=== PATIENT | female | born 1990 | race African-American/Black ===

== ENCOUNTER 2018-06-29 09:37 | Emergency (ER) | payer BC ==
[2018-06-29 11:27] VITALS: BP 158/99
[2018-06-29] MEDS ORDERED: Ipratropium 0.5MG/2.5ML NEB* 0.5 MG/2.5 ML NEB.SOLN INH ONE (11:39)
[2018-06-29] MEDS ORDERED: Albuterol 2.5 MG/3 ML NEB.SOL* (0.083%) INH ONE (11:39)
--- NOTE | 2018-06-29 11:45 | UC ---
Respiratory Complaint HPI - HPI Summary HPI Summary: The patient is a 27-year-old female with a history of asthma who is currently out of her asthma medicines. She has had cough chest tightness wheezing 3 days. Now she has substernal chest pain and both the right and left side and some right infrascapular back pain. She denies any shortness of breath or fever. - History of Current Complaint Chief Complaint: UCRespiratory Stated Complaint: CHEST PAIN Time Seen by Provider: 06/29/18 11:34 Hx Obtained From: Patient Hx Last Menstrual Period: unknown Onset/Duration: Gradual Onset, Lasting Days Timing: Constant Severity Initially: Mild Severity Currently: Moderate Pain Intensity: 5 Pain Scale Used: 0-10 Numeric Character: Cough: Nonproductive Aggravating Factors: Exertion, Deep Breaths Alleviating Factors: Nothing Associated Signs And Symptoms: Positive: Pleuritic Chest Pain, Wheezing - Allergies/Home Medications Allergies/Adverse Reactions: Allergies Allergy/AdvReac Type Severity Reaction Status Date / Time No Known Allergies Allergy Verified 06/29/18 11:21 PMH/Surg Hx/FS Hx/Imm Hx Previously Healthy: Yes Respiratory History: Asthma, Bronchitis - Surgical History Surgical History: Yes Surgery Procedure, Year, and Place: BILATERAL EYE SURGERY - Family History Known Family History: Positive: Hypertension - mother Negative: Cardiac Disease, Diabetes - Social History Alcohol Use: None Substance Use Type: None Smoking Status (MU): Never Smoked Tobacco Have You Smoked in the Last Year: No - Immunization History Most Recent Influenza Vaccination: 2016 Review of Systems All Other Systems Reviewed And Are Negative: Yes Constitutional: Positive: Fatigue Skin: Positive: Negative Eyes: Positive: Negative ENT: Positive: Negative Respiratory: Positive: Cough Cardiovascular: Positive: Chest Pain Gastrointestinal: Positive: Negative Genitourinary: Positive: Negative Motor: Positive: Negative Neurovascular: Positive: Negative Musculoskeletal: Positive: Negative Neurological: Positive: Negative Psychological: Positive: Negative Physical Exam Triage Information Reviewed: Yes Appearance: Well-Appearing, No Pain Distress, Well-Nourished Vital Signs: Initial Vital Signs Temp 97.3 F 06/29/18 11:21 Pulse 63 06/29/18 11:21 Resp 16 06/29/18 11:21 BP 158/99 06/29/18 11:21 Pulse Ox 100 06/29/18 11:21 Eyes: Positive: Conjunctiva Clear ENT: Positive: Hearing grossly normal, Nasal congestion, TMs normal. Negative: Nasal drainage, Tonsillar swelling, Tonsillar exudate, Trismus, Muffled voice, Hoarse voice, Dental tenderness, Sinus tenderness, Uvula midline Neck: Positive: Supple, Nontender, No Lymphadenopathy Respiratory: Positive: No respiratory distress, No accessory muscle use, Wheezing Cardiovascular: Positive: RRR, No Murmur Abdomen Description: Positive: Nontender Musculoskeletal: Positive: ROM Intact, No Edema Neurological: Positive: Alert Psychological Exam: Normal Skin Exam: Normal UC Diagnostic Evaluation - Laboratory O2 Sat by Pulse Oximetry: 100 - normal/not hypoxic Re-Evaluation - Re-Evaluation First Eval Re-Evaluation Time: 12:33 Change: Improved - much better air movement/better subjectively/lungs clear Respiratory Course/Dx - Differential Dx/Diagnosis Provider Diagnoses: acute bronchitis. bronchospasm Discharge - Sign-Out/Discharge Documenting (check all that apply): Patient Departure All imaging exams completed and their final reports reviewed: No Studies - Discharge Plan Condition: Stable Disposition: HOME Prescriptions: predniSONE [Deltasone 20 MG TAB] 40 mg PO DAILY #10 tab Patient Education Materials: Acute Bronchitis (ED), Bronchospasm (ED) Referrals: Hannah De La Paz MD [Primary Care Provider] - 1 Week (your BP was high here and should be rechecked) Additional Instructions: use inhaler as directed - Billing Disposition and Condition Condition: STABLE Disposition: Home
[2018-06-29] MEDS ORDERED: predniSONE TAB* 20 MG PO ONE (12:29)
[2018-06-29] MEDS ORDERED: Albuterol HFA INHALER* 8 gm MDI INH ONE (12:30)
== END 2018-06-29 12:55 | disposition home or self-care (01) ==
LOC: UCCORT 09:37
DX: J20.9 Acute bronchitis, unspecified (principal); J45.909 Unspecified asthma, uncomplicated
CPT/HCPCS: 99213; A9270-GY; G0463; J7512

== ENCOUNTER 2019-08-28 10:57 | Emergency (ER) | payer BC ==
[2019-08-28 11:59] VITALS: BP 128/76
--- NOTE | 2019-08-28 12:30 | UC ---
Skin Complaint HPI - HPI Summary HPI Summary: Pt presents with sudden onset of left buttock tenderness and pain. Pt believes she has a "boil" on her left buttock. - History of Current Complaint Chief Complaint: UCSkin Time Seen by Provider: 08/28/19 11:59 Stated Complaint: SKIN CONCERN Hx Obtained From: Patient Hx Last Menstrual Period: "Last week, the week before" ?: No Onset/Duration: Sudden Onset, Lasting Days, Still Present, Worse Since - osnet Skin Exposure Onset/Duration: Days Ago Timing: Constant Onset Severity: Moderate Current Severity: Moderate Pain Intensity: 6 Location: Discrete - left mid buttock Character: Swelling, Pain, Raised, Painful Aggravating Factor(s): Touch Alleviating Factor(s): Nothing Associated Signs & Symptoms: Positive: Tenderness - Allergy/Home Medications Allergies/Adverse Reactions: Allergies Allergy/AdvReac Type Severity Reaction Status Date / Time amoxicillin Allergy Vomiting Verified 08/28/19 11:52 clavulanic acid Allergy Vomiting Verified 08/28/19 11:53 [From Augmentin] prednisone AdvReac Urinary Verified 08/28/19 11:52 Incontinence Home Medications: Home Medications Acetaminophen TAB* [Tylenol TAB*] 650 mg PO Q4H PRN 08/28/19 [History Confirmed 08/28/19] Albuterol HFA INHALER* [Ventolin HFA Inhaler*] 1 - 2 puff INH Q4H PRN 08/28/19 [ History Confirmed 08/28/19] Bupropion XL* [Wellbutrin XL *] 300 mg PO QAM 08/28/19 [History Confirmed ] Lisinopril TAB* [Prinivil TAB 10 MG*] 10 mg PO DAILY 08/28/19 [History Confirmed 08/28/19] LoraTADine TAB(NF) [Claritin 10 MG TAB(NF)] 10 mg PO DAILY PRN 08/28/19 [ History Confirmed 08/28/19] Omeprazole CAP (NF) [Prilosec CAP* 20 MG] 20 mg PO DAILY 08/28/19 [History Confirmed 08/28/19] Propranolol 10 mg TAB [Inderal 10 mg TAB] 10 mg PO BID PRN 08/28/19 [History Confirmed 08/28/19] PMH/Surg Hx/FS Hx/Imm Hx Previously Healthy: Yes - Surgical History Surgical History: Yes Surgery Procedure, Year, and Place: BILATERAL EYE SURGERY - Family History Known Family History: Positive: Hypertension - mother Negative: Cardiac Disease, Diabetes - Social History Occupation: Employed Full-time Lives: With Family Alcohol Use: Rare Substance Use Type: None Smoking Status (MU): Never Smoked Tobacco Have You Smoked in the Last Year: No - Immunization History Most Recent Influenza Vaccination: 2017 Vaccination Up to Date: Yes Review of Systems All Other Systems Reviewed And Are Negative: Yes Constitutional: Positive: Negative Skin: Positive: Other - tender "bump" Eyes: Positive: Negative ENT: Positive: Negative Respiratory: Positive: Negative Cardiovascular: Positive: Negative Gastrointestinal: Positive: Negative Genitourinary: Positive: Negative Motor: Positive: Negative Neurovascular: Positive: Negative Musculoskeletal: Positive: Negative Neurological: Positive: Negative Psychological: Positive: Negative Is Patient Immunocompromised?: No Physical Exam Triage Information Reviewed: Yes Appearance: Well-Appearing Vital Signs: Initial Vital Signs Temp 98.9 F 08/28/19 11:49 Pulse 86 08/28/19 11:49 Resp 18 08/28/19 11:49 BP 128/76 08/28/19 11:49 Pulse Ox 98 08/28/19 11:49 Vital Signs Reviewed: Yes Eye Exam: Normal ENT Exam: Normal Neck exam: Normal Respiratory: Positive: No respiratory distress Musculoskeletal Exam: Normal Neurological Exam: Normal Psychological Exam: Normal Skin Exam: Other - dime size pustular area on left mid buttock along gluteal fold. PUtuleeaslily manually unroofed and moderate amount of purulent drainage drained. Pt tolerated well. dressing applied after area cleansed prior to dressing application by provider Course/Dx - Course Course Of Treatment: I discussed with the patient warm packing area and continued attempts to drain abscess. Pt verbalized understanding and agreed to plan of care. - Differential Diagnoses - Skin Complaint Differential Diagnoses: Abscess, MRSA - Diagnoses Provider Diagnosis: Abscess of buttock, left Discharge ED - Sign-Out/Discharge Documenting (check all that apply): Patient Departure All imaging exams completed and their final reports reviewed: No Studies - Discharge Plan Condition: Stable Disposition: HOME Prescriptions: Sulfamethox/Trimethoprim DS* [Bactrim DS 800/160 TAB*] 1 tab PO Q12H #20 tab Patient Education Materials: Abscess (ED), Warm Compress or Soak (ED) Forms: *Work Release Referrals: Hannah De La Paz MD [Primary Care Provider] - If Needed - Billing Disposition and Condition Condition: STABLE Disposition: Home
== END 2019-08-28 12:39 | disposition home or self-care (01) ==
LOC: UCCORT 10:57
DX: L02.31 Cutaneous abscess of buttock (principal); Z88.0 Allergy status to penicillin; Z88.8 Allergy status to other drugs, medicaments and biological substances
CPT/HCPCS: 87070; 87077; 87186; 87205; 87640; 87641; 99202; G0463

== ENCOUNTER 2019-10-05 16:05 | Emergency (ER) | payer BC ==
[2019-10-05 16:28] VITALS: BP 138/94
--- NOTE | 2019-10-05 16:38 | UC ---
FLU HPI - HPI Summary HPI Summary: Cough, sore throat, headache, bodyaches,and chills x1 day. Taking ibuprofen prn ; last taken today 1200. nothing makes it better/worse. she did get flu shot this year. - History of Current Complaint Chief Complaint: UCRespiratory Stated Complaint: FEVER/COUGH/DELGADO/BODY ACHES/ST Time Seen by Provider: 10/05/19 16:22 Hx Obtained From: Patient Hx Last Menstrual Period: 10/01/19 Pain Intensity: 7 Pain Scale Used: 0-10 Numeric Associated Signs & Symptoms: Positive: Negative - Allergy/Home Medications Allergies/Adverse Reactions: Allergies Allergy/AdvReac Type Severity Reaction Status Date / Time amoxicillin Allergy Vomiting Verified 10/05/19 16:24 clavulanic acid Allergy Vomiting Verified 10/05/19 16:24 [From Augmentin] prednisone AdvReac Urinary Verified 10/05/19 16:24 Incontinence Home Medications: Home Medications Acetaminophen TAB* [Tylenol TAB*] 650 mg PO Q4H PRN 08/28/19 [History Confirmed 10/05/19] Albuterol HFA INHALER* [Ventolin HFA Inhaler*] 1 - 2 puff INH Q4H PRN 08/28/19 [ History Confirmed 10/05/19] Bupropion XL* [Wellbutrin XL *] 300 mg PO QAM 08/28/19 [History Confirmed ] Lisinopril TAB* [Prinivil TAB 10 MG*] 10 mg PO DAILY 08/28/19 [History Confirmed 10/05/19] LoraTADine TAB(NF) [Claritin 10 MG TAB(NF)] 10 mg PO DAILY PRN 08/28/19 [ History Confirmed 10/05/19] Omeprazole CAP (NF) [Prilosec CAP* 20 MG] 20 mg PO DAILY 08/28/19 [History Confirmed 10/05/19] Propranolol 10 mg TAB [Inderal 10 mg TAB] 10 mg PO BID PRN 08/28/19 [History Confirmed 10/05/19] PMH/Surg Hx/FS Hx/Imm Hx Previously Healthy: Yes Cardiovascular History: Hypertension - Surgical History Surgical History: Yes Surgery Procedure, Year, and Place: BILATERAL EYE SURGERY - Family History Known Family History: Positive: Hypertension - mother Negative: Cardiac Disease, Diabetes - Social History Alcohol Use: Rare Substance Use Type: None Smoking Status (MU): Never Smoked Tobacco Have You Smoked in the Last Year: No - Immunization History Most Recent Influenza Vaccination: 2017 Vaccination Up to Date: Yes Review of Systems All Other Systems Reviewed And Are Negative: Yes Constitutional: Positive: Chills, Fatigue ENT: Positive: Sore Throat Respiratory: Positive: Cough Gastrointestinal: Negative: Vomiting, Diarrhea Musculoskeletal: Positive: Myalgia Neurological/Mental Status: Positive: Headache Physical Exam Triage Information Reviewed: Yes Appearance: Well-Appearing Vital Signs: Initial Vital Signs Temp 100.4 F 10/05/19 16:26 Pulse 124 10/05/19 16:26 Resp 16 10/05/19 16:26 BP 138/94 10/05/19 16:26 Pulse Ox 100 10/05/19 16:26 Vital Signs Reviewed: Yes Eyes: Positive: Conjunctiva Clear ENT: Positive: Pharynx normal, TMs normal, Uvula midline Neck: Positive: Supple, Nontender, No Lymphadenopathy. Negative: Nuchal Rigidity Respiratory Exam: Normal Cardiovascular Exam: Normal Neurological: Positive: Alert Skin: Negative: Rashes Flu Course/Dx - Course Course Of Treatment: Influenza illness with + influenza today. Did get flu shot. offered tamiflu she declined. she would like to stay home from work which I support. Exam essentially unremarkable. vitals did show fever. - Differential Dx/Diagnosis Differential Diagnosis/HQI/PQRI: Influenza, Upper Respiratory Infection, Other Provider Diagnosis: Influenza Discharge ED - Sign-Out/Discharge Documenting (check all that apply): Patient Departure All imaging exams completed and their final reports reviewed: No Studies - - Discharge Plan Condition: Good Disposition: HOME Patient Education Materials: Viral Syndrome (ED) Forms: *Work Release Referrals: Hannah De La Paz MD [Primary Care Provider] - Additional Instructions: Please go to emergency room if you have breathing issues. - Billing Disposition and Condition Condition: GOOD Disposition: Home - Attestation Statements Provider Attestation: I was available for consult. This patient was seen by the MANDI. The patient was not presented to , seen by or examined by oh -Kike Ventura MD
[2019-10-05 16:39] LABS: Influenza A Molecular POSITIVE (Negative)
== END 2019-10-05 17:04 | disposition home or self-care (01) ==
LOC: UCCORT 16:05
DX: J11.1 Influenza due to unidentified influenza virus with other respiratory manifestations (principal); I10 Essential (primary) hypertension; Z79.899 Other long term (current) drug therapy; Z88.1 Allergy status to other antibiotic agents; Z88.8 Allergy status to other drugs, medicaments and biological substances
CPT/HCPCS: 99211; G0463